=== PATIENT | female | born 1975 | race Caucasian/White ===

== ENCOUNTER → 2017-06-03 | Outpatient (CLI) | payer BC ==
--- NOTE | 2017-06-03 10:31 | RAD ---
Examination: CT of the abdomen pelvis without contrast History: History of low back pain, urinary tract infection. Comparison: None available Technique: Axial CT images of the abdomen pelvis were performed without contrast. Coronal and sagittal reformats were performed PQRS Compliance Statement: One or more of the following individualized dose reduction techniques were utilized for this examination: 1. Automated exposure control 2. Adjustment of the mA and/or kV according to patient size 3. Use of iterative reconstruction technique Findings: Minimal bibasal lung atelectasis. No evidence of free air identified in the abdomen. The evaluation of solid organs is limited due to lack of IV contrast. The evaluation of the bowel is limited due to lack of oral contrast. The visualized noncontrasted liver, spleen, adrenals grossly appears unremarkable. The gallbladder is mildly distended. Moderate amount of density identified within the gallbladder probably sludge or tiny stones. The visualized pancreas grossly appears unremarkable. The stomach is mildly distended. The small bowel is nondilated. Feces and gas noted in the colon. Urinary bladder is mildly distended. The visualized uterus, adnexa grossly appears unremarkable. Minimal amount of fluid identified in the pelvis, nonspecific. There is a tiny 1 mm intrarenal collecting system calculus identified in the right kidney. No evidence of hydronephrosis. The caliber of the aorta grossly appears unremarkable. Retroaortic left renal vein. Moderate degenerative changes lumbar spine. Impression: 1. Tiny 1 mm intrarenal system calculus identified in the right kidney without hydronephrosis. 2. Moderate amount of sludge or gallstones identified within the gallbladder. 3. Small amount of fluid identified in the pelvis probably physiological for this age.
== END | disposition home or self-care (01) ==
LOC: CT 09:56
PROVIDERS: ATTEND Physician Assistant
DX: N32.89 Other specified disorders of bladder (principal); N20.0 Calculus of kidney; K82.8 Other specified diseases of gallbladder; K31.89 Other diseases of stomach and duodenum; M47.896 Other spondylosis, lumbar region; J98.11 Atelectasis
CPT/HCPCS: 74176